=== PATIENT | female | born 1935 ===

== ENCOUNTER 2022-04-29 08:44 | Inpatient (IN) | payer OTHER ==
[~2022-04-29] VITALS: Ht 167.6 cm; Wt 85.7 kg
[2022-04-29] MEDS ORDERED: TRELEGY ELLIPT1 EACH IH (13:50)
[2022-04-29] MEDS ORDERED: AMLOD-VALSA-HC1 EACH PO (13:50)
[2022-04-29] MEDS ORDERED: CRESTOR40 MG PO (13:51)
[2022-04-29] MEDS ORDERED: JANUMET XR 1001 EACH PO (13:51)
[2022-04-29] MEDS ORDERED: PROAIR HFA8.5 GM IH (13:51)
[2022-04-29] MEDS ORDERED: ZETIA10 MG PO (13:52)
[2022-04-29] MEDS ORDERED: ADULT LOW DOSE81 M1 PO (13:52)
[2022-05-04] MEDS ORDERED: FLONASE16 GM (13:46)
[2022-05-04] MEDS ORDERED: RISEDRONATE SO150 MG (13:47)
[2022-05-04] MEDS ORDERED: REFRESH RELIEVA10 ML (13:47)
[2022-05-04] MEDS ORDERED: MONTELUKAST SOD10 MG (13:47)
[2022-05-04] MEDS ORDERED: AMLODIPINE-VAL1 EACH (13:47)
[2022-05-19] MEDS ORDERED: INTESTINEX680 M1 (09:29)
[2022-05-19] MEDS ORDERED: BENZONATATE200 M1 (09:29)
== END 2022-05-14 16:10 | disposition home or self-care (01) | DRG 330 ==
LOC: O/R 05-04 06:43 → SURH 05-04 06:43 → SURG 05-04 10:45 → SURH 05-04 14:09 → O/R 05-04 20:52 → OB/GYN 05-06 12:38 → SURH 05-07 15:54 → OB/GYN 05-07 15:55 → SURH 05-07 19:11 → OB/GYN 05-07 21:40 → SURH 05-08 10:40
PROVIDERS: ADMIT Surgery; ATTEND Surgery
PROC: 07BB4ZZ Excision of Mesenteric Lymphatic, Percutaneous Endoscopic Approach (ICD-10-PCS; 2022-05-04)
PROC: 0DTG4ZZ Resection of Left Large Intestine, Percutaneous Endoscopic Approach (ICD-10-PCS; principal; 2022-05-04 10:45)
PROC: 5A0945A Assistance with Respiratory Ventilation, 24-96 Consecutive Hours, High Flow/Velocity Cannula (ICD-10-PCS; 2022-05-05)
PROC: 4A12X4Z Monitoring of Cardiac Electrical Activity, External Approach (ICD-10-PCS; 2022-05-07)
DX: C18.5 Malignant neoplasm of splenic flexure (principal); J44.1 Chronic obstructive pulmonary disease with (acute) exacerbation; J98.11 Atelectasis; J90 Pleural effusion, not elsewhere classified; J98.01 Acute bronchospasm; R59.0 Localized enlarged lymph nodes; K59.09 Other constipation; I11.9 Hypertensive heart disease without heart failure; I48.91 Unspecified atrial fibrillation; E11.9 Type 2 diabetes mellitus without complications; E78.5 Hyperlipidemia, unspecified; Z79.84 Long term (current) use of oral hypoglycemic drugs